=== PATIENT | male | born 1965 | race Caucasian/White ===

== ENCOUNTER → 2016-08-12 | Outpatient (CLI) | payer BC ==
[2016-08-12 18:36] LABS: BASOPHILS % (AUTO) 0.4 % (0-2); EOSINOPHILS # (AUTO) 0.1 T/MM3 (0-0.5); EOSINOPHILS % (AUTO) 1.3 % (0-4); HCT - HEMATOCRIT 39.2 % (41-53); HGB - HEMOGLOBIN 13.5 GM/DL (13.5-17.5); IMMATURE GRANULOCYTE # (AUTO) 0.02 T/MM3 (0.00-0.03); IMMATURE GRANULOCYTE % (AUTO) 0.3 % (0.0-0.5); LYMPHOCYTES # (AUTO) 2.3 T/MM3 (1-4.8); LYMPHOCYTES % (AUTO) 30.8 % (23-45); MEAN CORPUSCULAR HGB 29.9 UUG (26-34); MEAN CORPUSCULAR HGB CONC(MCHC 34.4 GM/DL (31-37); MEAN CORPUSCULAR VOLUME 86.7 UM3 (80-100); MONOCYTES # (AUTO) 0.6 T/MM3 (0-0.8); MONOCYTES % (AUTO) 7.3 % (0-9.0); NEUTROPHILS #(AUTO)-ABSOLUTE 4.5 T/MM3 (1.8-7.7); NEUTROPHILS % (AUTO) 59.9 % (33-66); RED BLOOD COUNT 4.52 M/MM3 (4.50-5.90); WBC - WHITE BLOOD COUNT 7.5 T/MM3 (4.5-11.0)
== END ==
LOC: LAB 18:17
PROVIDERS: ATTEND Physician Assistant
DX: K64.9 Unspecified hemorrhoids (principal)
CPT/HCPCS: 36415; 85025

== ENCOUNTER 2016-09-09 07:48 | Day surgery (SDC) | payer BC ==
[~2016-09-09] VITALS: Ht 182.9 cm; Wt 73.6 kg
[~2016-09-09 07:48] MED LIST: DOCU100T10 PO; HYDR25TA PO; LIDOCAINE 1% (10mg/ml) 2ml SDV INJ ONE; LISI-621 PO; LR 1,000 ML IV SCH
--- OUTSIDE RECORDS SUMMARY | 2016-09-09 07:53 | XMS REPORT | Referral Summary ---
Author Author [facility], Family Medicine Organization [facility] Address Unknown Phone Unavailable Care Team Providers Care Magnetic Tape Composer Operator Name Role Phone Marcia Neely Primary Care Physician [phone] Encounter VC Date(s): 04/26/16 - 04/26/16 [facility], [address] [place] [address] Discharge Diagnosis: Abnormal laboratory test Discharge Diagnosis: Benign essential hypertension Discharge Diagnosis: Anemia, unspecified Discharge Disposition: 01-Home or Self Care Attending Physician: Familia Neely MD Admitting Physician: Familia Neely MD Vital Signs Most recent to 1 oldest [Reference Range]: Blood Pressure 120/70 mmHg [90-140/60-90 mmHg] (04/26/16 2:32 PM) Problem List Condition Effective Dates Status Health Status Informant Benign essential Active hypertension(Confirm ed) Spider 2012 Active bite(Confirmed) Allergies, Adverse Reactions, Alerts No Known Medication Allergies Medications hydroCHLOROthiazide 25 mg oral tablet 25 mg 1 tabs, Oral, Daily, # 90 tabs, 1 Refill(s), Pharmacy: [facility] # [id number], 1 tabs Oral Daily Start Date: 04/26/16 Status: Ordered lisinopril 20 mg oral tablet 20 mg 1 tabs, Oral, Daily, # 90 tabs, 0 Refill(s), Pharmacy: [facility] # [id number] Start Date: 04/26/16 Status: Ordered Results Hematology Most recent to 1 oldest [Reference Range]: WBC [4.8-10.8 7.7 10*3/uL 10*3/uL] (04/26/16 2:53 PM) RBC [4.60-6.20] 4.61 (04/26/16 2:53 PM) Hgb [14.0-18.0 13.8 gm/dL gm/dL] *LOW* (04/26/16 2:53 PM) Hct [42.0-52.0 %] 40.7 % *LOW* (04/26/16 2:53 PM) MCV [82.0-99.0 fL] 88.3 fL (04/26/16 2:53 PM) MCH [27.0-32.0 pg] 29.9 pg (04/26/16 2:53 PM) MCHC [32.0-36.0 33.9 gm/dL gm/dL] (04/26/16 2:53 PM) RDW [11.5-14.5 %] 12.6 % (04/26/16 2:53 PM) Platelet [150-400 321 10*3/uL 10*3/uL] (04/26/16 2:53 PM) MPV [8.8-14.8 fL] 10.4 fL (04/26/16 2:53 PM) Immunizations No data available for this section Procedures Procedure Date Related Diagnosis Body Site Incision and drainage of abscess of back1 04/27/14 1very large Social History Social History Type Response Smoking Status Current some day smoker; Type: Chewing Assessment and Plan Extracted from: Title: Ambulatory Patient Education Author: Familia Neely MD Date: Preventive Medicine Hypertension Hypertension, commonly called high blood pressure, is when the force of blood pumping through your arteries is too strong. Your arteries are the blood vessels that carry blood from your heart throughout your body. A blood pressure reading consists of a higher number over a lower number, such as 110/72. The higher number (systolic) is the pressure inside your arteries when your heart pumps. The lower number (diastolic) is the pressure inside your arteries when your heart relaxes. Ideally you want your blood pressure below 120/80. Hypertension forces your heart to work harder to pump blood. Your arteries may become narrow or stiff. Having untreated or uncontrolled hypertension can cause heart attack, stroke, kidney disease, and other problems. RISK FACTORS Some risk factors for high blood pressure are controllable. Others are not. Risk factors you cannot control include: Race. You may be at higher risk if you are . Age. Risk increases with age. Gender. Men are at higher risk than women before age 45 years. After age 65, women are at higher risk than men. Risk factors you can control include: Not getting enough exercise or physical activity. Being overweight. Getting too much fat, sugar, calories, or salt in your diet. Drinking too much alcohol. SIGNS AND SYMPTOMS Hypertension does not usually cause signs or symptoms. Extremely high blood pressure (hypertensive crisis) may cause headache, anxiety, shortness of breath , and nosebleed. DIAGNOSIS To check if you have hypertension, your health care provider will measure your blood pressure while you are seated, with your arm held at the level of your heart. It should be measured at least twice using the same arm. Certain conditions can cause a difference in blood pressure between your right and left arms. A blood pressure reading that is higher than normal on one occasion does not mean that you need treatment. If it is not clear whether you have high blood pressure, you may be asked to return on a different day to have your blood pressure checked again. Or, you may be asked to monitor your blood pressure at home for 1 or more weeks. TREATMENT Treating high blood pressure includes making lifestyle changes and possibly taking medicine. Living a healthy lifestyle can help lower high blood pressure. You may need to change some of your habits. Lifestyle changes may include: Following the DASH diet. This diet is high in fruits, vegetables, and whole grains. It is low in salt, red meat, and added sugars. Keep your sodium intake below 2,300 mg per day. Getting at least 3045 minutes of aerobic exercise at least 4 times per week. Losing weight if necessary. Not smoking. Limiting alcoholic beverages. Learning ways to reduce stress. Your health care provider may prescribe medicine if lifestyle changes are not enough to get your blood pressure under control, and if one of the following is true: You are 1859 years of age and your systolic blood pressure is above 140. You are 60 years of age or older, and your systolic blood pressure is above 150. Your diastolic blood pressure is above 90. You have diabetes, and your systolic blood pressure is over 140 or your diastolic blood pressure is over 90. You have kidney disease and your blood pressure is above 140/90. You have heart disease and your blood pressure is above 140/90. Your personal target blood pressure may vary depending on your medical conditions, your age, and other factors. HOME CARE INSTRUCTIONS Have your blood pressure rechecked as directed by your health care provider. Take medicines only as directed by your health care provider. Follow the directions carefully. Blood pressure medicines must be taken as prescribed. The medicine does not work as well when you skip doses. Skipping doses also puts you at risk for problems. Do not smoke. Monitor your blood pressure at home as directed by your health care provider. SEEK MEDICAL CARE IF: You think you are having a reaction to medicines taken. You have recurrent headaches or feel dizzy. You have swelling in your ankles. You have trouble with your vision. SEEK IMMEDIATE MEDICAL CARE IF: You develop a severe headache or confusion. You have unusual weakness, numbness, or feel faint. You have severe chest or abdominal pain. You vomit repeatedly. You have trouble breathing. MAKE SURE YOU: Understand these instructions. Will watch your condition. Will get help right away if you are not doing well or get worse. This information is not intended to replace advice given to you by your health care provider. Make sure you discuss any questions you have with your health care provider. Document Released: 05/05/2006 Document Revised: 09/19/2015 Document Reviewed: [employer] Interactive Patient Education 2016 [employer] No follow up information was provided. Extracted from: Title: Office Visit Note Author: Familia Neely MD Date: 04/26/16 Assessment/Plan Abnormal laboratory test CBC and hemoccult pending. Consider colonoscopy for screening when willing. Anemia See above. Ordered: CBC Hemogram Occult Blood X 3, Stool Benign essential hypertension This issue was reviewed, appears stable, and current therapy continued except as mentioned. Appropriate lab was reviewed from the most recent appropriate entry and lab was ordered if needed in the cpoe /nursing orders, and follow up recommended generally in 90 days and no later then six months. Refill meds. The patient reports their blood pressure has been stable at home and is not having any significant or related problems. There has been no chest pain, chest pressure, soa/andersen. A work/school note was offered and deferred by the patient.
--- OUTSIDE RECORDS SUMMARY | 2016-09-09 07:53 | XMS REPORT | Referral Summary ---
Author Author [facility], Family Medicine Organization [facility], [facility] Address Unknown Phone Unavailable Care Team Providers Care Spray Booth Operator Name Role Phone Marcia Neely Primary Care Physician [phone] Encounter VC Date(s): 01/02/15 - 01/02/15 [facility], [address] [place] [phone]- Discharge Disposition: 01-Home or Self Care Attending Physician: Familia Neely MD Admitting Physician: Familia Neely MD Vital Signs Most recent to 1 oldest [Reference Range]: Blood Pressure 130/70 mmHg [90-140/60-90 mmHg] (01/02/15 8:54 AM) Problem List Condition Effective Dates Status Health Status Informant Benign essential Active hypertension(Confirm ed) Spider 2012 Active bite(Confirmed) Allergies, Adverse Reactions, Alerts No Known Medication Allergies Medications hydrochlorothiazide 25 mg oral tablet 25 mg 1 tabs, Oral, Daily, X 90 days, # 90 tabs, 3 Refill(s), Pharmacy: [facility] #[id number], 1 tabs Oral Daily,x90 days Start Date: 01/02/15 Stop Date: 12/28/15 Status: Ordered lisinopril 20 mg oral tablet 20 mg 1 tabs, Oral, Daily, X 90 days, # 90 tabs, 3 Refill(s), Pharmacy: [facility] #[id number] Start Date: 01/02/15 Stop Date: 12/28/15 Status: Ordered Results Hematology Most recent to 1 oldest [Reference Range]: WBC [4.8-10.8 7.4 10*3/uL 10*3/uL] (01/02/15 9:25 AM) RBC [4.60-6.20 4.79 10*6/uL 10*6/uL] (01/02/15 9:25 AM) Hgb [14.0-18.0 14.1 gm/dL gm/dL] (01/02/15 AM) Hct [42.0-52.0 %] 42.4 % (01/02/15 AM) MCV [82.0-99.0 fL] 88.5 fL (01/02/15 AM) MCH [27.0-32.0 pg] 29.4 pg (01/02/15 AM) MCHC [32.0-36.0 33.3 gm/dL gm/dL] (01/02/15 AM) RDW [11.5-14.5 %] 12.9 % (01/02/15 AM) Platelet [150-400 340 10*3/uL 10*3/uL] (01/02/15 AM) MPV [8.8-14.8 fL] 10.6 fL (01/02/15 AM) Immature 0.5 % Granulocytes (01/02/15) [0.0-1.0 %] Neutrophils [51-75 62 % %] (01/02/15 AM) Lymphocytes [20-46 24 % %] (01/02/15 AM) Monocytes [4-11 %] 10 % (01/02/15 AM) Eosinophils [0-4 %] 3 % (01/02/15 AM) Basophils [0-2 %] 1 % (01/02/15 AM) Neutro Absolute 4.62 10*3 [1.90-7.00 10*3] (01/02/15:25 AM) Lymph Absolute 1.77 10*3 [0.80-3.30 10*3] (01/02/1525 AM) [place] Absolute 0.77 10*3 [0.30-1.00 10*3] (01/02/1525 AM) Eos Absolute 0.20 10*3 [0.00-0.50 10*3] (01/02/1525 AM) Baso Absolute 0.05 10*3 [0.00-0.20 10*3] (01/02/15:25 AM) Chemistry Most recent to 1 oldest [Reference Range]: Sodium Lvl [135-144 136 mEq/L mEq/L] (01/02/15 AM) Potassium Lvl 4.2 mEq/L [3.5-5.2 mEq/L] (01/02/15 AM) Chloride [99-111 100 mEq/L mEq/L] (01/02/15 AM) CO2 [23-31 mEq/L] 30 mEq/L (01/02/1525 AM) AGAP [3-20] 6 (01/02/15: AM) BUN [8-26 mg/dL] 12 mg/dL (01/02/15 AM) Glucose Lvl [70-99 98 mg/dL mg/dL] (01/02/15 AM) Creatinine Lvl 0.91 mg/dL [0.72-1.25 mg/dL] (01/02/15 AM) eGFR [>60 mL/min] >60 mL/min 1 (01/02/15 AM) Calcium Lvl 9.7 mg/dL [8.9-10.5 mg/dL] (01/02/15 AM) Albumin Lvl [3.5-5.0 4.3 gm/dL gm/dL] (01/02/15 AM) Total Protein 7.3 gm/dL [6.4-8.3 gm/dL] (01/02/15 AM) Globulin [1.8-4.0 3.0 gm/dL gm/dL] (01/02/15 AM) ALT [0-55 U/L] 14 U/L (01/02/15 AM) AST [5-34 U/L] 16 U/L (01/02/15 AM) Alk Phos [40-150 75 U/L U/L] (01/02/15 AM) Bili Total [0.2-1.2 0.4 mg/dL mg/dL] (01/02/15: AM) PSA (wihout Reflex 0.4 ng/mL 2 Free) [0.0-3.5 (01/02/15 9:25 AM) ng/mL] Chol [0-199 mg/dL] 171 mg/dL (01/02/15 9:25 AM) Trig [0-149 mg/dL] 94 mg/dL (01/02/15 9:25 AM) HDL [40-84 mg/dL] 57 mg/dL (01/02/15 9:25 AM) LDL [0-130 mg/dL] 95 mg/dL (01/02/15 9:25 AM) VLDL Cholesterol 19 mg/dL [0-28 mg/dL] (01/02/15 9:25 AM) Cardiac Risk 3.0 [0.0-5.7] (01/02/15 9:25 AM) 1Result Comment: Multiply eGFR results by 1.21 for race. 2Result Comment: AUA PSA Best Practice Guidelines: Age-Adjusted PSA Values by Ethnic Group Age Range Asians - Caucasians Americans 40-49 0-2.0 0-2.0 0-2.5 50-59 0-3.0 0-4.0 0-3.5 60-69 0-4.0 0-4.5 0-4.5 70-79 0-5.0 0-5.5 0-6.5 Urinalysis Most recent to 1 oldest [Reference Range]: UA Color Yellow (01/02/15 9:25 AM) UA Appear Clear (01/02/15 9:25 AM) UA pH [5.0-8.0] 7.5 (01/02/15 9:25 AM) UA Leuk Est Negative [Negative] (01/02/15 9:25 AM) UA Nitrite Negative [Negative] (01/02/15 9:25 AM) UA Protein Negative [Negative] (01/02/15 9:25 AM) UA Glucose Negative [Negative] (01/02/15 9:25 AM) UA Ketones Negative [Negative] (01/02/15 9:25 AM) UA Urobilinogen 1.0 mg/dL [<1.0 mg/dL] (01/02/15 9:25 AM) UA Bili [Negative] Negative (01/02/15 9:25 AM) UA Blood [Negative] Negative (01/02/15 9:25 AM) UA Spec Grav 1.015 [1.003-1.030] (01/02/15 9:25 AM) Type Voided (01/02/15 9:25 AM) Immunizations No data available for this section Procedures Procedure Date Related Diagnosis Body Site Collection of venous blood by venipuncture 01/02/15 Incision and drainage of abscess of back1 04/27/14 1very large Social History Social History Type Response Smoking Status Current some day smoker; Type: Chewing Assessment and Plan Extracted from: Title: Ambulatory Patient Education Author: Familia Neely MD Date: Family Medicine Hypertension Hypertension, commonly called high blood [...] arteries may become narrow or stiff. Having hypertension puts you at risk for heart disease, stroke, and other problems. RISK FACTORS Some risk factors for high blood pressure are controllable. Others are not. Risk factors you cannot control include: Race. You may be at higher risk if you are . Age. Risk increases with age. Gender. Men are at higher risk than women before age 45 years. After age 65 , women are at higher risk than men. [...] not mean that you need treatment. If one blood pressure reading is high, ask your health care provider about having it checked again. TREATMENT Treating high blood pressure includes making lifestyle changes and possibly taking medication. Living a healthy lifestyle can help lower high blood pressure. You may need to change some of your habits. Lifestyle changes may include: Following the DASH diet. This diet is high in fruits, vegetables, and whole grains. It is low in salt, red meat, and added sugars. Getting at least 2 1/2 hours of brisk physical activity every week. Losing weight if necessary. Not smoking. Limiting alcoholic beverages. Learning ways to reduce stress. If lifestyle changes are not enough to get your blood pressure under control, your health care provider may prescribe medicine. You may need to take more than one. Work closely with your health care provider to understand the risks and benefits. HOME CARE INSTRUCTIONS Have your blood pressure rechecked as directed by your health care provider. Only take medicine as directed by your health care provider. [...] are not doing well or get worse. Document Released: 05/05/2006 Document Revised: 05/10/2014 Document Reviewed: [employer] Patient Information 2015 [employer]. This information is not intended to replace advice given to you by your health care provider. Make sure you discuss any questions you have with your health care provider. No follow up information was provided. Extracted from: Title: Office Visit Note Author: Familia Neely MD Date: 01/02/15 Assessment/Plan Benign essential hypertension This issue is stable and appropriate refills, lab, and f/u have been discussed. High cholesterol This issue is stable and appropriate refills, lab, and f/u have been discussed. Hypertension This issue is stable and appropriate refills, lab, and f/u have been discussed. Screening for prostate cancer Lab pending.
--- OUTSIDE RECORDS SUMMARY | 2016-09-09 07:53 | XMS REPORT | Referral Summary ---
Author Author [facility], Family Medicine Organization [facility] Address Unknown Phone Unavailable Care Team Providers Care Border Police Name Role Phone Marcia Neely Primary Care Physician [phone] Encounter VC Date(s): 01/30/15 - 01/30/15 [facility], [address] [place] [phone]- [place] Discharge Disposition: 01-Home or Self Care Attending Physician: Familia Neely MD Admitting Physician: Familia Neely MD Vital Signs Most recent to 1 oldest [Reference Range]: Peripheral Pulse 72 bpm Rate [60-100 bpm] (01/30/15 10:25 AM) Blood Pressure 120/80 mmHg [90-140/60-90 mmHg] (01/30/15 10:25 AM) Problem List Condition Effective Dates Status Health Status Informant Benign essential Active hypertension(Confirm ed) Spider 2012 Active bite(Confirmed) Allergies, Adverse Reactions, Alerts No Known Medication Allergies Medications hydrochlorothiazide 25 mg oral tablet 25 mg 1 tabs, Oral, Daily, X 90 days, # 90 tabs, 3 Refill(s), Pharmacy: [facility] #[id number], 1 tabs Oral Daily,x90 days Start Date: 01/02/15 Stop Date: 12/28/15 Status: Ordered lisinopril 20 mg oral tablet 20 mg 1 tabs, Oral, Daily, X 90 days, # 90 tabs, 3 Refill(s), Pharmacy: [facility] #[id number] Start Date: 01/02/15 Stop Date: 12/28/15 Status: Ordered Results No data available for this section Immunizations No data available for this section [...] Released: 05/05/2006 Document Revised: 05/10/2014 Document Reviewed: [employer] Patient Information 2015 [facility] [employer]. This information is not intended to replace advice given to you by your health care provider. Make sure you discuss any questions you have with your health care provider. No follow up information was provided. Extracted from: Title: Office Visit Note Author: Familia Neely MD Date: 01/30/15 Assessment/Plan Benign essential hypertension This issue is stable and appropriate refills, lab, and f/u have been discussed. 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 UA pending.
--- OUTSIDE RECORDS SUMMARY | 2016-09-09 07:53 | XMS REPORT | Referral Summary ---
Author Organization Unknown Address Unknown Phone Unavailable Care Team Providers Care Dye And Chemical Coordinator Name Role Phone Marcia Neely Primary Care Physician [phone] Encounter VC Date(s): 05/31/14 - 05/31/14 [facility], [place], [address] [place] [id number]- Discharge Diagnosis: Visit for suture removal Discharge Disposition: Home or Self Care Attending Physician: Eva Aragon APRN Admitting Physician: Eva Aragon APRN Referring Physician: Familia Neely MD Vital Signs Most recent to 1 oldest [Reference Range]: Temperature Tympanic 36.9 degC [36.6-38.1 degC] (05/31/14 9:03 AM) Problem List Condition Effective Dates Status Health Status Informant Benign essential Active hypertension(Confirm ed) Spider 2012 Active bite(Confirmed) Allergies, Adverse Reactions, Alerts No Known Medication Allergies Medications hydrochlorothiazide 25 mg oral tablet 1 tabs, Oral, Daily, X 90 days, # 90 tabs, 1 Refill(s), Pharmacy: [facility] #[id number], 1 tabs Oral Daily,x90 days Start Date: 04/25/14 Stop Date: 10/22/14 Status: Ordered lisinopril 20 mg oral tablet 1 tabs, Oral, Daily, # 90 tabs, 1 Refill(s), Pharmacy: [facility] #[id number] Start Date: 04/25/14 Stop Date: 10/22/14 Status: Ordered Results No data available for this section Immunizations No data available for this section Procedures Procedure Date Related Diagnosis Body Site Incision and drainage of abscess of back1 04/27/14 1very large Social History Social History Type Response Smoking Status Current some day smoker; Type: Chewing Assessment and Plan Extracted from: Title: Ambulatory Patient Education Author: Eva Aragon APRN Date : 05/31/14 Family Medicine Suture Removal Your caregiver has removed your sutures today. If skin adhesive strips were applied at the time of suturing, or applied following removal of the sutures today, they will begin to peel off in a couple more days. If skin adhesive strips remain after 14 days, they may be removed. HOME CARE INSTRUCTIONS Change any bandages (dressings ) at least once a day or as directed by your caregiver. If the bandage sticks, soak it off with warm, soapy water. Wash the area with soap and water to remove all the cream or ointment (if you were instructed to use any) 2 times a day. Rinse off the soap and pat the area dry with a clean towel. Reapply cream or ointment as directed by your caregiver. This will help prevent infection and keep the bandage from sticking. Keep the wound area dry and clean. If the bandage becomes wet, dirty, or develops a bad smell, change it as soon as possible. Only take [id number] or prescription medicines for pain, discomfort, or fever as directed by your caregiver. Use sunscreen when out in the sun. New scars become sunburned easily. Return to your caregivers office in in 7 days or as directed to have your sutures removed. You may need a tetanus shot if: You cannot remember when you had your last tetanus shot. You have never had a tetanus shot. The injury broke your skin. If you got a tetanus shot, your arm may swell, get red, and feel warm to the touch. This is common and not a problem. If you need a tetanus shot and you choose not to have one, there is a rare chance of getting tetanus. Sickness from tetanus can be serious. SEEK IMMEDIATE MEDICAL CARE IF: There is redness, swelling, or increasing pain in the wound. Pus is coming from the wound. An unexplained oral temperature above 102 F (38.9 C) develops. You notice a bad smell coming from the wound or dressing. The wound breaks open (edges not staying together) after sutures have been removed. Document Released: 01/28/2002 Document Revised: 07/27/2012 Document Reviewed: [facility] Patient Information 2014 [employer]. No follow up information was provided. Extracted from: Title: Progress/SOAP Note Author: Eva Aragon APRN Date: 05/31/14 Assessment/Plan Visit for suture removal The incision looks good. There will be an" indentation" along incision line but overall the incision looks excellent. Sutures are removed without difficulty and antibiotic ointment applied. Return to our clinic on an as-needed basis, continue with general medical care through your primary care physician. Ordered:
--- OUTSIDE RECORDS SUMMARY | 2016-09-09 07:53 | XMS REPORT | Continuity of Care Document ---
Author Author [facility] Organization [facility] Address Unknown Phone Unavailable Allergies Active Description Code Type Severity Reaction Onset Reported/Identified Relationship to Patient Clinical Status Yes No Known Medication Allergies NKMA N/A N/A 01/28/2014 Medications Problems Procedures Results Test Result Range CBC With Platelet No Differential - 04/26/16 14:53 HCT 40.7 % 42.0-52.0 HGB 13.8 g/dL 14.0-18.0 MCH 29.9 pg 27.0-32.0 MCHC 33.9 g/dL 32.0-36.0 MCV 88.3 fL 82.0-99.0 MPV 10.4 fL 8.8-14.8 Platelet Count 321 K/uL 150-400 RBC 4.61 10*6/uL 4.60-6.20 RDW 12.6 % 11.5-14.5 WBC 7.7 K/uL 4.8-10.8 Encounters ACCT No. Visit Date/Time Discharge Status Pt. Type Provider Facility Loc./Unit Complaint [id number] 08/12/2016 17:32:00 2016 23:59:00 DIS Outpatient Amarjit Brown [facility] IC HEMMEROID [id number] 07/29/2016 10:10:00 2016 23:59:00 DIS Outpatient Familia Neely [facility] FM 90 day johann [id number] 04/26/2016 14:11:00 2015 23:59:00 DIS Outpatient Familia Neely [facility] New Med check and discuss labwork [id number] 01/29/2016 14:06:00 2015 23:59:00 DIS Outpatient Familia Neely [facility] New FM TCPA DOT PHY SELF PAY [id number] 01/30/2015 10:08:00 2014 23:59:00 DIS Outpatient Familia Neely [facility] New FM DOT PHY self pay P and M Minaya [id number] 01/02/2015 08:44:00 2014 23:59:00 DIS Outpatient Familia Neely [facility] FM BP MED CK [id number] 05/31/2014 08:41:00 2014 23:59:00 DIS Outpatient Eva Aragon [facility] New Surg suture removal [id number] 05/10/2014 14:41:00 2013 23:59:00 DIS Outpatient Devan Emerson [facility] Surg fu/cyst removal [id number] 05/03/2014 15:07:00 2013 23:59:00 DIS Outpatient Devan Emerson [facility] New Surg johann abscess [id number] 04/27/2014 16:18:00 2013 23:59:00 DIS Outpatient Devan Emerson [facility] Surg JOHANN ABSCESS [id number] 04/26/2014 15:04:00 2013 23:59:00 DIS Outpatient Devan Emerson [facility] Surg CYST ON BACK/PAINFUL [id number] 04/25/2014 14:31:00 2013 23:59:00 DIS Outpatient Familia Neely [facility] FM lump on back [id number] 08/27/2016 12:32:00 ACT Outpatient Devan Emerson [facility] New Surg Colonoscopy
--- OUTSIDE RECORDS SUMMARY | 2016-09-09 07:53 | XMS REPORT | Referral Summary ---
Author Author [facility] Organization [facility] Address Unknown Phone Unavailable Care Team Providers Care Angle Shear Set Up Operator Name Role Phone Marcia Neely Primary Care Physician [phone] Encounter VC Date(s): 01/29/16 - 01/29/16 [facility], [address] [place] [address]- Discharge Disposition: 01-Home or Self Care Attending Physician: Familia Neely MD Admitting Physician: Familia Neely MD Vital Signs Most recent to 1 oldest [Reference Range]: Blood Pressure 150/70 mmHg [90-140/60-90 mmHg] *HI* (01/29/16 2:26 PM) Problem List Condition Effective Dates Status Health Status Informant Benign essential Active hypertension(Confirm ed) Spider 2012 Active bite(Confirmed) Allergies, Adverse Reactions, Alerts No Known Medication Allergies Medications hydrochlorothiazide 25 mg oral tablet 25 mg 1 tabs, Oral, Daily, # 90 tabs, 0 Refill(s), Pharmacy: [facility] # [id number], 1 tabs Oral Daily Start Date: 01/29/16 Status: Ordered lisinopril 20 mg oral tablet 20 mg 1 tabs, Oral, Daily, # 90 tabs, 0 Refill(s), Pharmacy: [facility] # [id number] Start Date: 01/29/16 Status: Ordered Results Hematology Most recent to 1 oldest [Reference Range]: WBC [4.8-10.8 8.4 10*3/uL 10*3/uL] (01/29/16 2:51 PM) RBC [4.60-6.20] 4.53 *LOW* (01/29/16 2:51 PM) Hgb [14.0-18.0 13.4 gm/dL gm/dL] *LOW* (01/29/16 2:51 PM) Hct [42.0-52.0 %] 39.9 % *LOW* (01/29/16 2:51 PM) MCV [82.0-99.0 fL] 88.1 fL (01/29/16 2:51 PM) MCH [27.0-32.0 pg] 29.6 pg (01/29/16 2:51 PM) MCHC [32.0-36.0 33.6 gm/dL gm/dL] (01/29/16 2:51 PM) RDW [11.5-14.5 %] 12.3 % (01/29/16 2:51 PM) Platelet [150-400 305 10*3/uL 10*3/uL] (01/29/16 2:51 PM) MPV [8.8-14.8 fL] 10.7 fL (01/29/16 2:51 PM) Chemistry Most recent to 1 oldest [Reference Range]: Sodium Lvl [135-144 134 mEq/L mEq/L] *LOW* (01/29/16 2:51 PM) Potassium Lvl 4.3 mEq/L [3.5-5.2 mEq/L] (01/29/16 2:51 PM) Chloride [99-111 99 mEq/L mEq/L] (01/29/16 2:51 PM) CO2 [23-31 mEq/L] 28 mEq/L (01/29/16 2:51 PM) AGAP [3-20] 7 (01/29/16 2:51 PM) BUN [8-26 mg/dL] 18 mg/dL (01/29/16 2:51 PM) Glucose Lvl [70-99 91 mg/dL mg/dL] (01/29/16 2:51 PM) Creatinine Lvl 0.88 mg/dL [0.72-1.25 mg/dL] (01/29/16 2:51 PM) eGFR [>60 mL/min] >60 mL/min 1 (01/29/16 2:51 PM) Calcium Lvl 9.1 mg/dL [8.9-10.5 mg/dL] (01/29/16 2:51 PM) Albumin Lvl [3.5-5.0 4.4 gm/dL gm/dL] (01/29/16 2:51 PM) Total Protein 6.7 gm/dL [6.1-7.7 gm/dL] (01/29/16 2:51 PM) Globulin [1.8-4.0 2.3 gm/dL gm/dL] (01/29/16 2:51 PM) ALT [0-55 U/L] 11 U/L (01/29/16 2:51 PM) AST [5-34 U/L] 16 U/L (01/29/16 2:51 PM) Alk Phos [40-150 66 U/L U/L] (01/29/16 2:51 PM) Bili Total [0.2-1.2 0.4 mg/dL mg/dL] (01/29/16 2:51 PM) 1Result Comment: Multiply eGFR results by 1.21 for race. Immunizations No data available for this section Procedures Procedure Date Related Diagnosis Body Site Incision and drainage of abscess of back1 04/27/14 1very large Social History Social History Type Response Smoking Status Current some day smoker; Type: Chewing Assessment and Plan Extracted from: Title: Ambulatory Patient Education Author: Familia Neely MD Date: 05/03 Family Medicine Hypertension Hypertension, commonly called high [...] if one of the following is true: Your systolic blood pressure is above 150. Your diastolic blood pressure is above 90. You have diabetes, and your systolic blood pressure is over 140 or your diastolic blood pressure is over 85. You have heart disease or have had a stroke or heart attack, and your blood pressure is above 130 over 80, which is written as 130/80. HOME CARE INSTRUCTIONS Have your blood pressure [...] care provider. Document Released: 05/05/2006 Document Revised: 05/26/2015 Document Reviewed: [facility] Patient Information 2016 [employer]. No follow up information was provided. Extracted from: Title: Office Visit Note Author: Familia Neely MD Date: 01/29/16 Assessment/Plan Benign essential hypertension This issue was reviewed, appears stable, and current therapy continued except as mentioned. Appropriate lab was reviewed from the most recent appropriate entry and lab was ordered if needed in the cpoe /nursing orders, and follow up recommended generally in 90 days and no later then six months. The patient reports their blood pressure has been stable at home and is not having any significant or related problems. There has been no chest pain, chest pressure, soa/andersen. The patient had an elevated blood pressure reading and is to monitor their bp and call with a report if consistently > 140/90. 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 BP has been consistently normal on his journal from home.
[2016-09-09 07:59] VITALS: BP 131/72; PULSE 70; RESP 14; TEMP 97.6; O2SAT 98; Ht 182.9 cm; Wt 73.6 kg
--- NOTE | 2016-09-09 08:55 | ANESPREOP ---
Anesthesia Record Date and Time DATE: 09/09/16 TIME: 08:53 Pre-Op Diagnosis rectal bleeding Proposed Surgical Procedure COLONOSCOPY NPO since: mn Allergies: Coded Allergies: No Known Allergies (Unverified , 09/09/16) Ht/Wt/BMI Height: 6 ' 0.00 " Weight: 73.600 kg BMI: 22.0 kg/m2 Vital Signs Date Time Temp Pulse Resp B/P Pulse Ox O2 Delivery O2 Flow Rate FiO2 09/09/16 07:59 97.6 70 14 131/72 98 Room Air Medications Inpatient Medications Current Medications Medications (Trade) Dose Ordered Sig/Shana Start Time Stop Time Status Last Admin Dose Admin Lactated Ringer's (Lactated Ringers) 1,000 ml @ 50 mls/hr Q20H 09/09/16 07:00 09/09/16 08:12 50 MLS/HR Docusate Sodium (Stool Softener) 100 Mg Tablet, 1 TAB PO DAILY PRN for CONSTIPATION/STOOL SOFTENING, (Reported) Last Taken: on 09/05/16 0800 Hydrochlorothiazide (Hydrochlorothiazide) 25 Mg Tablet, 1 TAB PO DAILY, (Reported) Last Taken: on 09/08/16 0800 Lisinopril (Lisinopril) 20 Mg Tablet, 20 MG PO DAILY, (Reported) Last Taken: on 09/07/16 2200 Currently on Beta Thanh: No Medical/Surgical History Anesthesia PMH: Reports: *Hypertension, Denies: *Diabetes, Anesthesia Reactions (NO AIRWAY ISSUES), Arthritis, Cancer, Clotting Problems, Glaucoma, Malignant Hyperthermia, Renal Disease, Sleep Apnea, Thyroid Disease Substance Use Type: does not use Alcohol Intake: none Past Surgical History Orthopedic Surgeries: Abdominal Surgeries: Genitourinary Surgeries: Cardiac Surgeries: Endocrine Surgeries: Reproductive Surgeries: Neurological Surgeries: Ear Surgeries: Nose Surgeries: Throat Surgeries: Other Surgeries: Anesthesia Adverse Reactions: FOUND none Family Hx of Anesthesia Advers: none Hx of Motion Sickness: No Pertinent Findings EKG Rhythm: Sinus Rhythm Physical Exam Respiratory: Bilat breath sounds equal, Lungs clear Cardiovascular: FOUND Regular rate, rhythm, FOUND No murmur Airway Assessment Mallampati Score: I TMD: 3 Fingerbreadths Neck Extension: Good Overall Assessment: No Airway Concerns ASA: 2 Plan Anesthesia Plan: TIVA Discussion Discussed risks/options/alternatives of anesthesia and questions answered. Patient consents. Nursing pain assessment noted. Attestation Statement Prior to the delivery of any anesthetic medication, I examined the patient, developed the plan, obtained the patient's consent and discussed the risk and benefits of the procedure with the patient/guardian. CRISTAL RICE ALUMNI RELATIONS MANAGER Sep 09, 2016 08:55
[2016-09-09] MEDS ORDERED: LIDOCAINE 2% (20mg/ml) 5ml PF SDV ONE (09:05)
[2016-09-09] MEDS ORDERED: PROPOFOL 500mg 50 ML IV ONE (09:05)
[2016-09-09 09:23] VITALS: BP 98/83; PULSE 70; RESP 12; TEMP 97.3; O2SAT 97
[2016-09-09] MEDS ORDERED: LIDOCAINE VISCOUS 2% Oral Soln 15ml UD ONE (09:37)
[2016-09-09 09:38] VITALS: BP 101/62; PULSE 73; RESP 17; O2SAT 98
[2016-09-09 09:53] VITALS: BP 103/61; PULSE 73; RESP 18; TEMP 96.8; O2SAT 97
--- NOTE | 2016-09-09 10:54 | ANESPO ---
Post-Op Note Date 09/09/16 Time: 09:29 Status Pt Participated in Evaluation: Pt participated in person Vital Signs Date Time Temp Pulse Resp B/P Pulse Ox O2 Delivery O2 Flow Rate FiO2 09/09/16 09:53 96.8 73 18 103/61 97 Room Air Respiratory Function: Airway patent Mental Status: Alert/oriented Pain Level Intensity: 0 Hydration: IV infusing Complications during Recovery None apparent Follow-Up Instructions Instructions Per Surgeon CRISTAL RICE CRNA Sep 09, 2016 10:54
--- NOTE | 2016-09-09 15:15 | OPNOTEF ---
DATE OF SERVICE 09/09/2016 SURGEON Devan Mckinley MD PREOPERATIVE DIAGNOSIS Personal history for rectal bleeding. POSTOPERATIVE DIAGNOSIS Personal history for rectal bleeding, mild proctitis. PROCEDURES Colonoscopy with biopsies from rectum via cold biopsy technique. ANESTHESIA TIVA BRIEF HISTORY/INDICATIONS Mr. Bush is a 51-year-old gentleman who presents today to [facility] to undergo a colonoscopy as a result of his history for rectal bleeding as well as to serve as a portion of his overall colorectal cancer surveillance. For completeness please refer to notes included in the patient's chart. FINDINGS Upon colonoscopy there was no evidence for angiodysplastic lesions, polyps, diverticula or jenny malignancies. The patient was found to have some mild erythema and edema of the rectal mucosa indicative of a mild proctitis. This could have been a result of a bowel prep but nonetheless, several biopsies were obtained from within the rectum via cold biopsy technique for permanent pathology. DESCRIPTION OF PROCEDURE After informed consent was obtained, the patient was brought to the endoscopy suite and placed on the table in left lateral decubitus position. The patient subsequently underwent total intravenous anesthesia by the nurse agricultural mechanic per my request. A formal time-out was then completed. Next, a digital rectal examination was performed. Normal sphincter tone. No rectal masses were appreciated. An Olympus colonoscope was inserted in the anus and advanced through the lumen of the colon under direct visualization at all times until the cecum was ascertained. Triangulation of the teniae coli, ileocecal valve and appendiceal lumen were all visualized. The scope was then slowly withdrawn, again while maintaining visualization of the lumen at all times. The entire colon was without evidence for angiodysplastic lesions, polyps, diverticula or jenny malignancies. Once the colonoscope was withdrawn back into the rectal vault, patient was found to have some mild erythema of the mucosa with some associated edema of the mucosa as well. This was not pathologic in nature and not indicative for ulcerative colitis. Nonetheless, several biopsies were obtained from the rectum via cold biopsy technique and submitted for pathologic evaluation. A J-maneuver was performed. No worrisome perianal pathology was noted. Although the patient had stated that he had some problems with hemorrhoids, I did not see any endoscopic evidence for significant internal hemorrhoidal disease. Scope was allowed to straighten and withdrawn through the anal verge. Perianal region was inspected and also was found to be without evidence for significant external hemorrhoids. The patient tolerated the procedure without difficulty and was sent back to the preop area in stable condition. We will await the biopsy results from today's biopsies from within the rectal vault and will proceed accordingly with further recommendations thereafter. From a colorectal cancer surveillance standpoint, it appears the patient will need a repeat colonoscopy at a 10-year interval. ENRIQUE
== END 2016-09-09 09:54 | disposition home or self-care (01) ==
LOC: SCU 07:48
PROVIDERS: ATTEND Surgery
DX: K62.89 Other specified diseases of anus and rectum (principal); K62.5 Hemorrhage of anus and rectum; Z87.19 Personal history of other diseases of the digestive system; I10 Essential (primary) hypertension; Z79.899 Other long term (current) drug therapy
CPT/HCPCS: 45380; J2704; J7120